=== PATIENT | male | born 1995 | race Caucasian/White ===

== ENCOUNTER 2022-02-04 14:57 | Emergency (ER) | payer OTHER ==
[2022-02-04 17:01] LABS: BLOOD UREA NITROGEN,BUN 7 mg/dL (7.0-18.0); CARBON DIOXIDE,CO2 24.4 mmol/L (21.0-32.0); CHLORIDE,CL 104 mmol/L (98-107); GLUCOSE RANDOM 87 mg/dL (74-106); SODIUM,NA 139 mmol/L (136-148)
[2022-02-04 17:06] LABS: ESTIMATED GFR 120 mL/min (>60)
[2022-02-04 17:58] LABS: CORONAVIRUS COVID-19 NAA NEGATIVE (NEGATIVE); INFLUENZA A NAA NEGATIVE (NEGATIVE); INFLUENZA B NAA NEGATIVE (NEGATIVE)
[2022-02-04] MEDS ORDERED: Amoxicillin/Clavulanate K 875-125 MG Tab PO ONE (18:09)
== END 2022-02-04 18:30 ==
LOC: MW.ED 14:57
DX: J18.9 Pneumonia, unspecified organism (principal); F17.210 Nicotine dependence, cigarettes, uncomplicated; Z20.822 Contact with and (suspected) exposure to COVID-19
CPT/HCPCS: 0240U; 36415; 71046; 80053; 84484; 85025; 93005; 99285; 93010; 99284